=== PATIENT | female | born 1980 | race Caucasian/White ===

== ENCOUNTER → 2021-02-14 | Outpatient (CLI) | payer OTHER ==
[2021-02-14 14:13] VITALS: RESP 16; TEMP 98.1; BMI 44.9
[2021-02-14 14:23] VITALS: BP 132/82; PULSE 102
[2021-02-14 14:56] LABS: HCT 41.5 % (34.0-46.0); HGB 13.5 gm/dL (11.4-16.0); MCH 28.3 pg (25.0-35.0); MCHC 32.6 g/dL (31.0-37.0); MCV 86.9 fL (80.0-100.0); Mean Platelet Volume 7.3; Platelet Count 309 k/uL (150-450); RBC 4.78 m/uL (3.80-5.40); RDW 13.1 % (11.5-15.5); WBC 9.3 k/uL (3.8-10.6)
[2021-02-15 14:52] LABS: African American GFR (CKD) 88.8 (60.0-200.0); Albumin 4.3 g/dL (3.8-4.9); Albumin/Globulin Ratio 1.71 (1.60-3.17); Anion Gap 10.8 mmol/L (4.00-12.00); BUN/Creat Ratio 11.09 Ratio (12.00-20.00); Blood Urea Nitrogen 10.4 mg/dL (9.0-27.0); Calcium 9.4 mg/dL (8.7-10.3); Carbon Dioxide 25.9 mmol/L (21.6-31.8); Folate, Serum 13.6 ng/mL (4.40-31.00); Globulin 2.5 g/dL (1.6-3.3); Non-African American GFR(CKD) 76.6 (60.0-200.0); Potassium 4.2 mmol/L (3.5-5.5); Total Bilirubin 0.3 mg/dL (0.30-1.20); Total Protein 6.7 g/dL (6.2-8.2)
== END ==
LOC: BARWHC3 13:57
PROVIDERS: ATTEND Surgery
DX: E88.81 Metabolic syndrome and other insulin resistance (principal); E66.01 Morbid (severe) obesity due to excess calories; E55.9 Vitamin D deficiency, unspecified; Z68.41 Body mass index [BMI] 40.0-44.9, adult; Z91.040 Latex allergy status; Z88.2 Allergy status to sulfonamides; Z88.1 Allergy status to other antibiotic agents
CPT/HCPCS: 36415; 80053; 82306; 82607; 82746; 83036; 84425; 85027; 93005; 99203

== ENCOUNTER 2021-03-24 08:53 | Day surgery (SDC) | payer OTHER ==
[2021-03-22 12:06] VITALS: BMI 53.3
[~2021-03-24 08:53] MED LIST: LACTATED RINGERS 1,000 ML IV SCH; LIDOCAINE 1% (10MG/ML) FOR IV START INTRADERMA PRN
[2021-03-24 09:21] VITALS: TEMP 96.4
[2021-03-24] MEDS ORDERED: PROPOFOL 10 MG/ML 20 ML VIAL IV ONE (11:08)
[2021-03-24] MEDS ORDERED: LIDOCAINE 1% INJ 10MG/ML (20 ML MDV) ONE (11:08)
--- NOTE | 2021-03-24 11:20 | P.GSHP ---
History of Present Illness H&P Date: 03/24/21 Chief Complaint: GERD, morbid obesity 's is a 40-year-old female who is undergoing workup for sleeve gastrectomy. Patient has had lifetime problems morbid obesity. Her BMI is 54. He said some issues with GERD. She'll undergo EGD today. Past Medical History Past Medical History: No Reported History Additional Past Medical History / Comment(s): BARIATRIC EVAL History of Any Multi-Drug Resistant Organisms: None Reported Past Surgical History: Cholecystectomy, Tonsillectomy Additional Past Surgical History / Comment(s): ORIF RT LITTLE FINGER Past Anesthesia/Blood Transfusion Reactions: No Reported Reaction Smoking Status: Never smoker - Past Family History Mother Family Medical History: No Reported History Medications and Allergies Home Medications Medication Instructions Recorded Confirmed Type Citalopram Hydrobromide [CeleXA] 40 mg PO DAILY 02/14/21 03/24/21 History valACYclovir [Valtrex] 500 mg PO DIRECTED 02/14/21 03/24/21 History Allergies Allergy/AdvReac Type Severity Reaction Status Date / Time latex Allergy Rash/Hives Verified 02/14/21 14:28 sulfamethoxazole Allergy Rash/Hives Verified 03/22/21 11:59 [From Bactrim] trimethoprim [From Bactrim] Allergy Unknown Verified 05/29/16 09:38 Surgical - Exam Vital Signs Temp Pulse Resp BP Pulse Ox 96.4 F L 84 16 143/67 98 03/24/21 09:17 03/24/21 09:17 03/24/21 09:17 03/24/21 09:17 03/24/21 09:17 - General well developed, well nourished, no distress - Eyes PERRL - ENT normal pinna - Neck no masses - Respiratory normal expansion - Cardiovascular Rhythm: regular - Abdomen Abdomen: soft, non tender Assessment and Plan Assessment: GERD, morbid obesity. We'll perform EGD.
--- NOTE | 2021-03-24 11:26 | P.OP ---
Date of Procedure: 03/24/21 Preoperative Diagnosis: GERD Morbid obesity Postoperative Diagnosis: Antral gastritis Procedure(s) Performed: EGD Anesthesia: MAC Surgeon: Surjit Melo Pathology: other (Antrum) Condition: stable Disposition: PACU Description of Procedure: The patient's placed on the endoscopy table in the lateral position. She received IV sedation. The gastro-/oropharynx passed in the esophagus and the stomach. Scope was then placed through the pylorus. The first and second portion of the duodenum appeared normal. Scope was then brought back the antrum this. Mildly inflamed. A biopsies performed. The scope was retroflexed the remainder of the stomach appeared normal. GE junction was at 40 cm the distal esophagus.. Proximal esophagus appeared normal. Scope withdrawn for patient.
[2021-03-24 12:04] VITALS: BP 118/79; PULSE 81; RESP 18
== END 2021-03-24 12:19 | disposition home or self-care (01) ==
LOC: ORWHC2ENDO 08:53
PROVIDERS: ATTEND Surgery
DX: K29.50 Unspecified chronic gastritis without bleeding (principal); K21.9 Gastro-esophageal reflux disease without esophagitis; F32.A Depression, unspecified; E66.01 Morbid (severe) obesity due to excess calories; Z68.43 Body mass index [BMI] 50.0-59.9, adult; Z90.49 Acquired absence of other specified parts of digestive tract; Z97.2 Presence of dental prosthetic device (complete) (partial); Z98.890 Other specified postprocedural states; Z79.899 Other long term (current) drug therapy; Z91.040 Latex allergy status; Z88.2 Allergy status to sulfonamides
CPT/HCPCS: 81025; 88305; 43239; J2001; J2704

== ENCOUNTER → 2021-04-25 | Outpatient (CLI) | payer OTHER ==
[2021-04-25 14:23] VITALS: BP 144/92; PULSE 92; RESP 18; TEMP 98.4; BMI 45.1
--- NOTE | 2021-04-25 16:41 | P.HPBAR ---
Bariatric H&P - History & Physicial H&P Date: 04/25/21 History & Physicial: Visit/CC: follow up Patient initial contact: Initial weight: 126.099 kg Initial weight in pounds: 278.00 Height: 5 ft 6 in Initial BMI: 44.9 Last weight: Current weight: 127.006 kg Current weight in pounds: 280.00 Current BMI: 45.1 [place] body weight (based on NIH guidelines): 58.967 kg Excess body weight loss: The patient is a 40 year-old F who presents for Bariatric Assessment. Patient presents today for bariatric follow-up. She has gained 2 pounds her last visit. She has some minimal GERD. Past Medical History Past Medical History: No Reported History Additional Past Medical History / Comment(s): BARIATRIC EVAL History of Any Multi-Drug Resistant Organisms: None Reported Past Surgical History: Cholecystectomy, Tonsillectomy Additional Past Surgical History / Comment(s): ORIF RT LITTLE FINGER Past Anesthesia/Blood Transfusion Reactions: No Reported Reaction Past Psychological History: Anxiety Smoking Status: Never smoker Past Alcohol Use History: Rare Past Drug Use History: None Reported - Past Family History Mother Family Medical History: No Reported History Surgical - Exam Vital Signs Temp Pulse Resp BP 98.4 F 92 18 144/92 04/25/21 14:21 04/25/21 14:21 04/25/21 14:21 04/25/21 14:21 - General well developed, well nourished, no distress - Eyes PERRL - ENT normal pinna - Neck no masses - Respiratory normal expansion - Cardiovascular Rhythm: regular - Abdomen Abdomen: soft, non tender Bariatric Assessment & Plan Plan: Morbid obesity. Patient appears minimal. Observed. She'll work on her dietary choices Bariatric Checklist Checklist: Plan: Checklist: EGD: 1. Hiatal hernia: 2. H. Pylori: HgbA1c: Vitamin D: Smoking: Never smoker Primary care physician referral: Psychiatry clearance: Cardiology clearance: Sleep study: Diet journal: VTE risk score: VTE risk level: Rehab needs at discharge:
== END ==
LOC: BARWHC3 13:44
PROVIDERS: ATTEND Surgery
DX: E66.01 Morbid (severe) obesity due to excess calories (principal); F41.9 Anxiety disorder, unspecified; Z68.42 Body mass index [BMI] 45.0-49.9, adult; Z91.040 Latex allergy status; Z88.2 Allergy status to sulfonamides
CPT/HCPCS: 99211

== ENCOUNTER → 2021-07-11 | Outpatient (CLI) | payer OTHER ==
[2021-07-11 13:22] VITALS: BP 145/96; PULSE 101; RESP 16; TEMP 97.7; BMI 45.0
--- NOTE | 2021-07-11 15:54 | P.HPBAR ---
Bariatric H&P - History & Physicial H&P Date: 07/11/21 History & Physicial: Visit/CC: pre-surg Patient initial contact: Initial weight: 126.099 kg Initial weight in pounds: 278.00 Height: 5 ft 6 in Initial BMI: 44.9 Last weight: Current weight: 126.552 kg Current weight in pounds: 279.00 Current BMI: 45.0 [place] body weight (based on NIH guidelines): 58.967 kg Excess body weight loss: The patient is a 40 year-old F who presents for Bariatric Assessment. Patient presents today for presurgical consultation. Patient morbid obese. Her BMI is 45. Past Medical History Past Medical History: No Reported History Additional Past Medical History / Comment(s): BARIATRIC EVAL History of Any Multi-Drug Resistant Organisms: None Reported Past Surgical History: Cholecystectomy, Tonsillectomy Additional Past Surgical History / Comment(s): ORIF RT LITTLE FINGER Past Anesthesia/Blood Transfusion Reactions: No Reported Reaction Past Psychological History: Anxiety Smoking Status: Never smoker Past Alcohol Use History: Rare Past Drug Use History: None Reported - Past Family History Mother Family Medical History: No Reported History Surgical - Exam Vital Signs Temp Pulse Resp BP 97.7 F 101 H 16 145/96 07/11/21 13:20 07/11/21 13:20 07/11/21 13:20 07/11/21 13:20 - General well developed, well nourished, no distress - Eyes PERRL - ENT normal pinna - Neck no masses - Respiratory normal expansion - Cardiovascular Rhythm: regular - Abdomen Abdomen: soft, non tender Bariatric Assessment & Plan Plan: Morbid obesity. Patient will undergo sleeve gastrectomy once her insurance authorization requirements have been met. Bariatric Checklist Checklist: Plan: Checklist: EGD: 1. Hiatal hernia: 2. H. Pylori: HgbA1c: Vitamin D: Smoking: Never smoker Primary care physician referral: Psychiatry clearance: Cardiology clearance: Sleep study: Diet journal: VTE risk score: VTE risk level: Rehab needs at discharge:
== END ==
LOC: BARWHC3 13:01
PROVIDERS: ATTEND Surgery
DX: E66.01 Morbid (severe) obesity due to excess calories (principal); Z68.41 Body mass index [BMI] 40.0-44.9, adult; F41.9 Anxiety disorder, unspecified; Z91.040 Latex allergy status; Z88.2 Allergy status to sulfonamides; Z71.51 Drug abuse counseling and surveillance of drug abuser; Z71.3 Dietary counseling and surveillance
CPT/HCPCS: 80323; 99211

== ENCOUNTER → 2021-07-30 | Outpatient (CLI) | payer OTHER ==
[2021-07-30 15:55] LABS: Basophils # (A) 0.02 X 10*3/uL (0.00-0.10); Basophils % (A) 0.2 %; Eosinophils # (A) 0 X 10*3/uL (0.04-0.35); Eosinophils % (A) 0 %; HCT 49.7 % (37.2-46.3); HGB 15.8 g/dL (12.0-15.0); Immature Grans, Automated 0.2 %; Lymphocytes # (A) 1.76 X 10*3/uL (0.90-5.00); Lymphocytes % (A) 20.7 %; MCH 27.1 pg (27.0-32.0); MCHC 31.8 g/dL (32.0-37.0); MCV 85.4 fL (80.0-97.0); Monocytes # (A) 0.36 X 10*3/uL (0.20-1.00); Monocytes % (A) 4.2 %; NRBC Per 100 WBC 0 /100 WBCS (0.0-0.0); Neutrophils # (A) 6.35 X 10*3/uL (1.80-7.70); Neutrophils % (A) 74.7 %; Platelet Count 377 X 10*3/uL (140-440); RBC 5.82 X 10*6/uL (4.10-5.20); WBC 8.51 X 10*3/uL (4.50-10.00)
[2021-07-30 16:07] LABS: African American GFR (CKD) 91.5 (60.0-200.0); Albumin 4.8 g/dL (3.8-4.9); Albumin/Globulin Ratio 1.51 (1.60-3.17); Anion Gap 12.2 mmol/L (10.00-18.00); BUN/Creat Ratio 16.17 Ratio (12.00-20.00); Blood Urea Nitrogen 14.8 mg/dL (9.0-27.0); Calcium 9.8 mg/dL (8.7-10.3); Carbon Dioxide 24.1 mmol/L (20.0-27.5); Globulin 3.2 g/dL (1.6-3.3); Potassium 4.2 mmol/L (3.5-5.5); Total Bilirubin 0.8 mg/dL (0.30-1.20); Total Protein 7.9 g/dL (6.2-8.2)
== END | disposition home or self-care (01) ==
LOC: LABPAT 11:13
PROVIDERS: ATTEND Surgery
DX: Z01.812 Encounter for preprocedural laboratory examination (principal)
CPT/HCPCS: 80053; 85025

== ENCOUNTER 2021-08-15 07:30 | Inpatient (IN) | payer OTHER ==
[~2021-08-15 07:30] MED LIST changes: +DEXAMETHASONE SOD PHOSPHATE 4 MG/ML 1 ML VIAL IV ONE; +ENOXAPARIN 40 MG/0.4 ML SYRINGE SQ PRN; -LACTATED RINGERS 1,000 ML IV SCH; -LIDOCAINE 1% (10MG/ML) FOR IV START INTRADERMA PRN; +MIDAZOLAM 2 MG/2 ML VIAL IV PRN; +ONDANSETRON 4 MG/2 ML VIAL IVP ONE; +SCOPOLAMINE 1 MG/72 HR PATCH TRANSDERM ONE; +ceFAZolin 3 GM in SODIUM CHLORIDE 0.9% 100 ML IVPB PRN
[2021-08-15] MEDS: LACTATED RINGERS 1,000 ML IV SCH (08:19)
--- NOTE | 2021-08-15 09:23 | P.GSHP ---
History of Present Illness H&P Date: 08/15/21 Chief Complaint: Obesity, BMI 43 This is a 40-year-old female who presents today for laparoscopic sleeve gastrectomy. Patient has had lifetime problems obesity. Patient presents today for laparoscopic sleeve gastric. Patient reversed surgery including issues with gastric sleeve disruption scarring and bleeding. Past Medical History Past Medical History: GERD/Reflux, Mitral Valve Prolapse (MVP), Skin Disorder Additional Past Medical History / Comment(s): "MVP not shown on EKG, difficult to hear per ". Eczema. History of Any Multi-Drug Resistant Organisms: None Reported Past Surgical History: Cholecystectomy, Orthopedic Surgery, Tonsillectomy Additional Past Surgical History / Comment(s): ORIF RT LITTLE FINGER. Past Anesthesia/Blood Transfusion Reactions: No Reported Reaction, Motion Sickness Past Psychological History: Anxiety Smoking Status: Never smoker Past Alcohol Use History: Rare Past Drug Use History: None Reported - Past Family History Mother Family Medical History: No Reported History Medications and Allergies Home Medications Medication Instructions Recorded Confirmed Type Citalopram Hydrobromide [CeleXA] 40 mg PO QAM 02/14/21 08/15/21 History valACYclovir [Valtrex] 500 mg PO DIRECTED PRN 02/14/21 08/15/21 History Allergies Allergy/AdvReac Type Severity Reaction Status Date / Time latex Allergy Rash/Hives Verified 08/15/21 08:18 sulfamethoxazole Allergy Rash/Hives Verified 08/15/21 08:18 [From Bactrim] trimethoprim [From Bactrim] Allergy Unknown Verified 08/15/21 08:18 Surgical - Exam Vital Signs Temp Pulse Resp BP Pulse Ox 97.7 F 96 18 140/89 99 08/15/21 08:26 08/15/21 08:26 08/15/21 08:26 08/15/21 08:26 08/15/21 08:26 - General well developed, well nourished, no distress - Eyes PERRL - ENT normal pinna - Neck no masses - Respiratory normal expansion - Cardiovascular Rhythm: regular - Abdomen Abdomen: soft, non tender Assessment and Plan Assessment: Morbid obesity. We'll perform laparoscopic sleeve gastrectomy
[2021-08-15] MEDS ORDERED: fentaNYL (PF) 50 MCG/ML 2 ML AMP ONE (09:33)
[2021-08-15] MEDS ORDERED: HYDROmorphone (PF) 1 MG/ML ONE (09:33)
[2021-08-15] MEDS ORDERED: KETAMINE 10 MG/ML 20 ML VIAL ONE (09:33)
[2021-08-15] MEDS ORDERED: GLYCOPYRROLATE 0.2 MG/ML 2 ML VIAL ONE (09:33)
[2021-08-15] MEDS ORDERED: LIDOCAINE 1% INJ 10MG/ML (20 ML MDV) ONE (09:33)
[2021-08-15] MEDS ORDERED: KETOROLAC 15 MG/ML 1 ML VIAL ONE (09:33)
[2021-08-15] MEDS ORDERED: MIDAZOLAM 2 MG/2 ML VIAL ONE (09:33)
[2021-08-15] MEDS ORDERED: PROPOFOL 10 MG/ML 20 ML VIAL IV ONE (09:33)
[2021-08-15] MEDS ORDERED: ROCURONIUM 10 MG/ML (5 ML VIAL) IV ONE (09:33)
[2021-08-15] MEDS ORDERED: NEOSTIGMINE 1 MG/ML 10 ML VIAL ONE (09:33)
[2021-08-15] MEDS ORDERED: SUCCINYLCHOLINE CHLORIDE VIAL 200 MG/10 ML VIAL IV ONE (09:33)
[2021-08-15] MEDS ORDERED: BUPIVACAIN-EPI 0.25%-1:200,000 30 ML VIAL SQ ONE (09:55)
[2021-08-15] MEDS ORDERED: ONDANSETRON 4 MG/2 ML VIAL IVP PRN (10:41)
[2021-08-15] MEDS ORDERED: HYOSCYAMINE ORAL DROPS 1.875 MG/15 ML BOTTLE PO PRN (10:41)
[2021-08-15] MEDS ORDERED: diphenhydrAMINE 50 MG/ML 1 ML VIAL IVP PRN (10:41)
[2021-08-15] MEDS ORDERED: HYDROcodone/APAP 15 ML SOLUTION PO PRN (10:41)
[2021-08-15] MEDS ORDERED: NALOXONE 0.4 MG/ML 1 ML VIAL IV PRN (10:41)
--- NOTE | 2021-08-15 10:41 | P.OP ---
Date of Procedure: 08/15/21 Preoperative Diagnosis: Morbid obesity, BMI 43 Postoperative Diagnosis: Morbid obesity Procedure(s) Performed: Laparoscopic sleeve gastrectomy Anesthesia: EMILIA Surgeon: Surjit Melo Estimated Blood Loss (ml): 10 Pathology: other (Stomach) Condition: stable Disposition: PACU Operative Findings: The patient was placed on the operating room table in the supine position. She received general anesthesia and then was placed in dorsal lithotomy position. Her abdomen was prepped and draped in sterile fashion. The skin incision sites were anesthetized 1% local Xylocaine. And then the skin was incised with an 11 blade in the left lateral position. Using a blade less trocar under direct visualization the peritoneal cavity was entered. The abdomen was insufflated and then a 5 mm laparoscope was placed into the peritoneal cavity. A 5 mm trocar was placed in the right epigastric, and right lateral position. A 15 mm trocar was placed in the supra-umbilical position and another 5 mm trocar was placed in the left lateral position. The left lateral lobe of the liver was retracted. The stomach was visualized. The greater curvature of the stomach was then dissected using the Harmonic scissors. The dissection occurred approximately 5 cm from the pylorus to the level of the left sola. There was no hiatal hernia seen. At this point a 40-[place] bougie dilator was placed the oropharynx and passed into the esophagus and into the stomach by the PRODUCTION PAINTER. The sleeve gastrectomy was performed by using the powered echelon stapler with a seam guard buttress material. Sequential firings of the stapler were performed. The gastric remnant was then brought out through the 15 mm trocar site. The dilator was withdrawn. And a orogastric tube was replaced into the stomach. The stomach was insufflated with 200 mL of methylene blue normal saline. There was no evidence of extravasation. The abdomen was irrigated there is no bleeding seen. The Nazario-Mandy device was used to close the 15 mm trocar with 0 Vicryl. Skin was closed with interrupted 3-0 Monocryl sutures once the trochars withdrawn. Dermabond dressing was applied. Patient was sent to recovery in stable condition.
[2021-08-15] MEDS: HYDROmorphone 0.5 MG/0.5 ML SYRINGE IVP PRN ×2 (11:21→11:35)
[2021-08-15] MEDS: SIMETHICONE 40 MG/0.6 ML DROPS 2,000 MG/30 ML BOTTLE PO PRN ×2 (14:26→20:11)
[2021-08-15] MEDS ORDERED: hydrALAZINE HCL 20 MG/ML 1 ML VIAL IVP PRN (15:20)
[2021-08-15] MEDS: HYDROmorphone 1 MG/ML 1 ML SYRINGE IVP PRN ×2 (15:47→21:20)
--- NOTE | 2021-08-15 17:13 | CONS ---
CONSULTATION DATE OF SERVICE: 08/15/2021 REASON FOR CONSULTATION: Advice regarding GERD and other medical issues, requested by Dr. Melo. HISTORY OF PRESENT ILLNESS: This 40-year-old woman with past medical history of GERD and mitral prolapse underwent laparoscopic sleeve gastrectomy by Dr. Melo. There is no history of any fever, rigors or chills. No history of headache, loss of consciousness, seizures. PAST MEDICAL HISTORY: Past medical history includes GERD, mitral valve prolapse. HOME MEDICATIONS: Reviewed. They include Valtrex. ALLERGIES: ALLERGIES include LATEX. FAMILY HISTORY: No history of heart disease or strokes in the family. SOCIAL HISTORY: No history of smoking. REVIEW OF SYSTEMS: Fourteen-point review of systems negative except as mentioned earlier. PHYSICAL EXAMINATION: Pulse is 93, blood pressure 167/91, respiration 16. HEENT: Conjunctivae normal. NECK: No jugular venous distention. CARDIOVASCULAR: S1, S2 muffled. RESPIRATION: Breath sounds diminished at the bases. A few scattered rhonchi. ABDOMEN: Soft, obese. Status post surgery. LEGS: No edema. No swelling. NERVOUS SYSTEM: No focal deficit. SKIN: No ulcer, rash, bleeding. JOINTS: No active deforming arthropathy. LABS: Not available. ASSESSMENT: 1. Status post laparoscopic sleeve gastrectomy. 2. Hypertension. 3. Gastroesophageal reflux disease. 4. Anxiety. RECOMMENDATIONS AND DISCUSSION: In this 40-year-old woman who presented after surgery, at this time I recommend to continue current medications, continue symptomatic treatment. Blood pressure is significantly elevated. P.r.n. medications may be used. Otherwise, DVT prophylaxis, incentive spirometry. Will follow the patient closely with you. Thank you, Dr. Melo, for letting us participate in the care of this patient. MMODL / IJN: [id number] /
[2021-08-15] MEDS: KETOROLAC 15 MG/ML 1 ML VIAL IVP SCH (17:26)
[2021-08-15] MEDS: 0.9% NACL WITH KCL 20 MEQ/L 1,000 ML IV SCH (17:28)
[2021-08-15] MEDS: ALBUTEROL NEBULIZED 2.5 MG/3 ML INHALATION SCH ×2 (20:22→21:46)
[2021-08-16] MEDS: KETOROLAC 15 MG/ML 1 ML VIAL IVP SCH ×3 (01:23→11:45)
[2021-08-16] MEDS: SIMETHICONE 40 MG/0.6 ML DROPS 2,000 MG/30 ML BOTTLE PO PRN (05:08)
[2021-08-16] MEDS: LACTATED RINGERS 1,000 ML IV SCH (07:09)
[2021-08-16 07:16] VITALS: RESP 19
[2021-08-16] MEDS ORDERED: 1: THIAMINE 100 MG, FOLIC ACID 1 MG in 0.9% NACL WITH KCL 20 MEQ/L 1,000 ML 2: 0.9% NAC IVPB SCH (08:00)
[2021-08-16] MEDS ORDERED: ENOXAPARIN 40 MG/0.4 ML SYRINGE SQ SCH (09:00)
[2021-08-16] MEDS ORDERED: PANTOPRAZOLE 40 MG/10 ML VIAL IV SCH (09:00)
[2021-08-16] MEDS ORDERED: CITALOPRAM HYDROBROMIDE 20 MG TAB PO SCH (09:00)
[2021-08-16 09:09] LABS: Basophils # (A) 0.01 X 10*3/uL (0.00-0.10); Basophils % (A) 0.1 %; Eosinophils # (A) 0 X 10*3/uL (0.04-0.35); Eosinophils % (A) 0 %; HCT 42.4 % (37.2-46.3); HGB 13.2 g/dL (12.0-15.0); Immature Grans, Automated 0.2 %; Lymphocytes # (A) 1.34 X 10*3/uL (0.90-5.00); Lymphocytes % (A) 10.9 %; MCH 27.4 pg (27.0-32.0); MCHC 31.1 g/dL (32.0-37.0); MCV 88.1 fL (80.0-97.0); Mean Platelet Volume 11.3 fL (9.5-12.2); Monocytes # (A) 0.65 X 10*3/uL (0.20-1.00); Monocytes % (A) 5.3 %; NRBC Per 100 WBC 0 /100 WBCS (0.0-0.0); Neutrophils # (A) 10.25 X 10*3/uL (1.80-7.70); Neutrophils % (A) 83.5 %; Platelet Count 326 X 10*3/uL (140-440); RBC 4.81 X 10*6/uL (4.10-5.20); RDW 14.6 % (11.5-14.5); WBC 12.28 X 10*3/uL (4.50-10.00)
[2021-08-16 09:30] LABS: African American GFR (CKD) 107.6 (60.0-200.0); Anion Gap 14.1 mmol/L (10.00-18.00); Calcium 8.8 mg/dL (8.7-10.3); Carbon Dioxide 21.9 mmol/L (20.0-27.5); Non-African American GFR(CKD) 92.9 (60.0-200.0); Phosphorus 2.9 mg/dL (2.4-5.1); Potassium 4.8 mmol/L (3.5-5.5)
[2021-08-16] MEDS: ALBUTEROL NEBULIZED 2.5 MG/3 ML INHALATION SCH ×2 (09:35→12:48)
[2021-08-16] MEDS: 0.9% NACL WITH KCL 20 MEQ/L 1,000 ML IV SCH (09:35)
--- NOTE | 2021-08-16 10:43 | FL ---
SINGLE CONTRAST UPPER GI EXAMINATION: CLINICAL HISTORY: 40-year-old female postop bariatric surgery, sleeve gastrectomy on 08/15/2021. TECHNIQUE: Single contrast exam performed with 50 ml Isovue-370 contrast. Total fluoroscopy time: 1 minute 34 seconds. Total images: 18. FINDINGS: The patient swallowed oral contrast without difficulty or delay. Mild tertiary peristaltic waves are demonstrated. There is prompt passage of contrast in across the GE junction into the proximal stomach . While contrast does pass across the sleeve gastrectomy, couple episodes of gastroesophageal reflux are also encountered. There is no extravasation of contrast to suggest leak. Trace postsurgical free air below each hemidiaphragm. IMPRESSION: No evidence for leak status post sleeve gastrectomy. Relative mild hesitancy in passage of contrast a cross the sleeve likely due to postoperative edema. Trace postsurgical free air below the diaphragm.
[2021-08-16 12:28] VITALS: BMI 43.3
[2021-08-16 13:51] VITALS: BP 142/80; PULSE 80; TEMP 97.9
--- NOTE | 2021-08-16 15:11 | P.DS ---
Providers Date of admission: 08/15/21 08:11 Expected date of discharge: 08/16/21 Attending physician: Surjit Melo Consults: 08/15/21 10:41 Consult Physician Routine Consulting Provider: Nato Singer Consult Reason/Comments: Medical management Do you want consulting provider notified?: Yes Primary care physician: Nnacy Moore Hospital Course: Discharge diagnosis 1. Morbid obesity status post laparoscopic sleeve gastrectomy Hospital course This is a 40-year-old female with history of morbid obesity. She is status post laparoscopic sleeve gastrectomy. She tolerated surgery well. Upper GI shows no evidence of leak. Relative mild hesitancy and passage of contrast across the sleeve likely due to postoperative edema. Trace postsurgical free air below the diaphragm. Patient is tolerating bariatric clear liquid diet. Patient reports her pain is controlled. She has been up and ambulating. She is having flatus. She's afebrile. She is stable for discharge. Please refer to chart for any further details. Physician Early Childhood Lead Teacher note has been reviewed by physician. Signing provider agrees with the documented findings, assessment, and plan of care. Patient Condition at Discharge: Stable Plan - Discharge Summary Discharge Rx Participant: Yes New Discharge Prescriptions: New bisacodyL [Dulcolax] 5 mg PO DAILY PRN #10 tab PRN Reason: Constipation Ondansetron Odt [Zofran Odt] 4 mg PO Q8HR PRN #9 tab PRN Reason: Nausea Simethicone 40 mg/0.6 ml Drops [Mylicon Drops] 40 mg PO PCHS PRN #30 ml PRN Reason: Gas Omeprazole [PriLOSEC] 40 mg PO DAILY #30 cap HYDROcodone/APAP 5-325MG [[place] 5-325] 1 tab PO Q6HR PRN 2 Days #5 tab PRN Reason: Pain Continue Citalopram Hydrobromide [CeleXA] 40 mg PO QAM valACYclovir [Valtrex] 500 mg PO DIRECTED PRN PRN Reason: Rash Discharge Medication List Citalopram Hydrobromide [CeleXA] 40 mg PO QAM 02/14/21 [History] valACYclovir [Valtrex] 500 mg PO DIRECTED PRN 02/14/21 [History] HYDROcodone/APAP 5-325MG [[place] 5-325] 1 tab PO Q6HR PRN 2 Days #5 tab 08/16/21 [Rx] Omeprazole [PriLOSEC] 40 mg PO DAILY #30 cap 08/16/21 [Rx] Ondansetron Odt [Zofran Odt] 4 mg PO Q8HR PRN #9 tab 08/16/21 [Rx] Simethicone 40 mg/0.6 ml Drops [Mylicon Drops] 40 mg PO PCHS PRN #30 ml 08/16/21 [Rx] bisacodyL [Dulcolax] 5 mg PO DAILY PRN #10 tab 08/16/21 [Rx] Follow up [facility]ment(s[facility]Ref[place] [facility] [place] [place] [facility] [place] 1 Week Activity/Diet/Wound Care/Special Instructions: No driving while taking [place] No lifting over 10 pounds You may shower. No soaking or tub baths for 2 weeks Very light activity until you are reevaluated at your follow up appointment with your surgeon No straws or carbonated beverages Discharge Disposition: HOME SELF-CARE
--- NOTE | 2021-08-16 16:24 | PN ---
PROGRESS NOTE DATE OF SERVICE: 08/16/2021 This 40-year-old woman who was admitted after laparoscopic sleeve gastrectomy is improving significantly. No chest pain. No palpitations. No fever. PHYSICAL EXAMINATION: Pulse 80, blood pressure 142/80, respiration 19. CHEST: Clear to auscultation. CARDIOVASCULAR: S1, S2 muffled. ABDOMEN: Soft. Status post surgery. NERVOUS SYSTEM: No focal deficit. LABS: Reviewed. ASSESSMENT: 1. Status post sleeve gastrectomy laparoscopically. 2. Hypertension. 3. Gastroesophageal reflux disease. 4. Anxiety. RECOMMENDATIONS AND DISCUSSION: I recommend to continue current medications, continue with the monitoring, symptomatic treatment. Continue incentive spirometry. DVT prophylaxis. Home medications upon discharge. Follow with primary physician in one week. Continue incentive spirometry. Thank you, Dr. Melo. MMJUANIL / ANANTHN: [id number] /
[2021-08-17] MEDS ORDERED: bisacodyL 5 MG TABLET.DR PO PRN (08:00)
== END 2021-08-16 16:29 | disposition home or self-care (01) | DRG 621 ==
LOC: 2ORMAIN 08:11 → 4SSUR 16:50
PROVIDERS: ADMIT Surgery; ATTEND Surgery
PROC: 0DB60Z3 Excision of Stomach, Open Approach, Vertical (ICD-10-PCS; principal; 2021-08-15 08:55)
DX: E66.01 Morbid (severe) obesity due to excess calories (principal); F41.9 Anxiety disorder, unspecified; I10 Essential (primary) hypertension; I34.1 Nonrheumatic mitral (valve) prolapse; K21.9 Gastro-esophageal reflux disease without esophagitis; Z68.41 Body mass index [BMI] 40.0-44.9, adult; Z90.89 Acquired absence of other organs; Z90.49 Acquired absence of other specified parts of digestive tract; Z88.2 Allergy status to sulfonamides; Z91.040 Latex allergy status
CPT/HCPCS: 74240; 80051; 81025; 82310; 82565; 83735; 84100; 84520; 85025; 88307

== ENCOUNTER → 2021-08-19 | Outpatient (CLI) | payer OTHER ==
[2021-08-19 11:08] VITALS: BP 133/85; PULSE 82; TEMP 98.1; BMI 42.7
== END ==
LOC: BARWHC3 10:22
PROVIDERS: ATTEND Surgery
DX: Z09 Encounter for follow-up examination after completed treatment for conditions other than malignant neoplasm (principal); K21.9 Gastro-esophageal reflux disease without esophagitis; Z98.84 Bariatric surgery status; Z91.040 Latex allergy status; Z88.2 Allergy status to sulfonamides
CPT/HCPCS: 99211

== ENCOUNTER → 2021-08-22 | Outpatient (CLI) | payer OTHER ==
[2021-08-22 15:56] VITALS: BP 131/85; PULSE 77; RESP 16; TEMP 97.5; BMI 42.3
== END ==
LOC: BARWHC3 14:42
PROVIDERS: ATTEND Surgery
DX: E66.01 Morbid (severe) obesity due to excess calories (principal); Z71.3 Dietary counseling and surveillance; F41.9 Anxiety disorder, unspecified; Z68.41 Body mass index [BMI] 40.0-44.9, adult; Z98.84 Bariatric surgery status; Z91.040 Latex allergy status; Z88.2 Allergy status to sulfonamides
CPT/HCPCS: 99211

== ENCOUNTER → 2021-08-22 | Outpatient (CLI) | payer OTHER ==
[2021-08-22 14:44] VITALS: BMI 42.3
== END ==
LOC: MERGE 14:05 → BARWHC3 14:05
PROVIDERS: ATTEND Surgery
DX: E66.01 Morbid (severe) obesity due to excess calories (principal); Z71.3 Dietary counseling and surveillance; Z68.41 Body mass index [BMI] 40.0-44.9, adult; Z91.040 Latex allergy status; Z88.2 Allergy status to sulfonamides
CPT/HCPCS: 97803

== ENCOUNTER → 2021-09-19 | Outpatient (CLI) | payer OTHER ==
[2021-09-19 13:12] VITALS: BP 105/70; PULSE 96; TEMP 97.9; BMI 40.1
--- NOTE | 2021-09-19 14:49 | P.HPBAR ---
Bariatric H&P - History & Physicial H&P Date: 09/19/21 History & Physicial: Visit/CC: 1 month sleeve f/u Patient initial contact: Initial weight: 126.099 kg Initial weight in pounds: 278.00 Height: 5 ft 6 in Initial BMI: 44.9 Last weight: Current weight: 112.945 kg Current weight in pounds: 249.00 Current BMI: 40.1 [place] body weight (based on NIH guidelines): 58.967 kg Excess body weight loss: 19.5% The patient is a 41 year-old F who presents for Bariatric Assessment. Patient presents today for sleeve gastrectomy follow-up. She has had some mild GERD. She's had excellent weight loss. Past Medical History Past Medical History: GERD/Reflux, Mitral Valve Prolapse (MVP), Skin Disorder Additional Past Medical History / Comment(s): "MVP not shown on EKG, difficult to hear per ". Eczema. History of Any Multi-Drug Resistant Organisms: None Reported Past Surgical History: Bariatric Surgery, Cholecystectomy, Orthopedic Surgery, Tonsillectomy Additional Past Surgical History / Comment(s): ORIF RT LITTLE FINGER. sleeve 08/15/2021. sleeve gastrectomy 08-15-21 Past Anesthesia/Blood Transfusion Reactions: Motion Sickness, No Reported Reaction Past Psychological History: Anxiety Smoking Status: Never smoker Past Alcohol Use History: Rare Past Drug Use History: None Reported - Past Family History Mother Family Medical History: No Reported History Surgical - Exam Vital Signs Temp Pulse BP 97.9 F 96 105/70 09/19/21 13:11 09/19/21 13:11 09/19/21 13:11 - General well developed, well nourished, no distress - Eyes PERRL - ENT normal pinna - Neck no masses - Respiratory normal expansion - Cardiovascular Rhythm: regular - Abdomen Abdomen: soft, non tender Bariatric Assessment & Plan Plan: Status post sleeve gastrectomy. Patient's GERD is minimal will be observed. She'll follow-up in 4 weeks. Bariatric Checklist Checklist: Plan: Checklist: EGD: 1. Hiatal hernia: 2. H. Pylori: HgbA1c: Vitamin D: Smoking: Never smoker Primary care physician referral: Psychiatry clearance: Cardiology clearance: Sleep study: Diet journal: VTE risk score: VTE risk level: Rehab needs at discharge:
[2021-09-19 18:27] LABS: HCT 42.4 % (37.2-46.3); HGB 13.6 g/dL (12.0-15.0); MCH 28.1 pg (27.0-32.0); MCHC 32.1 g/dL (32.0-37.0); MCV 87.6 fL (80.0-97.0); Mean Platelet Volume 11.2 fL (9.5-12.2); NRBC Per 100 WBC 0 /100 WBCS (0.0-0.0); Platelet Count 248 X 10*3/uL (140-440); RBC 4.84 X 10*6/uL (4.10-5.20); RDW 14.7 % (11.5-14.5)
[2021-09-19 18:57] LABS: % Iron Saturation 14.38 (12.00-45.00); African American GFR (CKD) 106.9 (60.0-200.0); Albumin 4.1 g/dL (3.8-4.9); Albumin/Globulin Ratio 1.64 (1.60-3.17); Anion Gap 8.9 mmol/L (10.00-18.00); BUN/Creat Ratio 22.38 Ratio (12.00-20.00); Blood Urea Nitrogen 17.9 mg/dL (9.0-27.0); Calcium 9.1 mg/dL (8.7-10.3); Carbon Dioxide 25.1 mmol/L (20.0-27.5); Ferritin 98.9 ng/mL (10.0-291.0); Globulin 2.5 g/dL (1.6-3.3); Magnesium 2.2 mg/dL (1.5-2.4); Non-African American GFR(CKD) 92.2 (60.0-200.0); Potassium 4.1 mmol/L (3.5-5.5); Total Bilirubin 0.5 mg/dL (0.30-1.20); Total Protein 6.6 g/dL (6.2-8.2)
[2021-09-20 11:44] LABS: Zinc, Serum 43 ug/dL (60-130)
[2021-09-21 09:49] LABS: Vitamin A 38 ug/dL (38-106)
== END ==
LOC: BARWHC3 12:42
PROVIDERS: ATTEND Surgery
DX: Z09 Encounter for follow-up examination after completed treatment for conditions other than malignant neoplasm (principal); K21.9 Gastro-esophageal reflux disease without esophagitis; Z98.84 Bariatric surgery status; F41.9 Anxiety disorder, unspecified; Z91.040 Latex allergy status; Z88.2 Allergy status to sulfonamides
CPT/HCPCS: 80053; 82306; 82607; 82728; 82746; 83540; 83550; 83735; 84255; 84425; 84443; 84590; 84630; 85027; 99211

== ENCOUNTER → 2021-10-17 | Outpatient (CLI) | payer OTHER ==
[2021-10-17 13:03] VITALS: BP 120/78; PULSE 83; TEMP 98; BMI 38.5
--- NOTE | 2021-10-17 13:30 | P.HPBAR ---
Bariatric H&P - History & Physicial H&P Date: 10/17/21 History & Physicial: Visit/CC: sleeve 2 month f/u Patient initial contact: Initial weight: 126.099 kg Initial weight in pounds: 278.00 Height: 5 ft 6 in Initial BMI: 44.9 Last weight: Current weight: 108.409 kg Current weight in pounds: 239.00 Current BMI: 38.5 [place] body weight (based on NIH guidelines): 58.967 kg Excess body weight loss: 26.3% The patient is a 41 year-old F who presents for Bariatric Assessment. Patient presents today for bariatric follow-up. She is in quite well. Her current weight is 203 9 pounds her weight last month was 249 pounds she's had some minimal GERD. She is using [id number] products for GERD Past Medical History Past Medical History: GERD/Reflux, Mitral Valve Prolapse (MVP), Skin Disorder Additional Past Medical History / Comment(s): "MVP not shown on EKG, difficult to hear per ". Eczema. History of Any Multi-Drug Resistant Organisms: None Reported Past Surgical History: Bariatric Surgery, Cholecystectomy, Orthopedic Surgery, Tonsillectomy Additional Past Surgical History / Comment(s): ORIF RT LITTLE FINGER. sleeve 08/15/2021. sleeve gastrectomy 08-15-21 Past Anesthesia/Blood Transfusion Reactions: Motion Sickness, No Reported Reaction Past Psychological History: Anxiety Smoking Status: Never smoker Past Alcohol Use History: Rare Past Drug Use History: None Reported - Past Family History Mother Family Medical History: No Reported History Surgical - Exam Vital Signs Temp Pulse BP 98 F 83 120/78 10/17/21 13:01 10/17/21 13:01 10/17/21 13:01 - General well developed, well nourished, no distress - Eyes PERRL - ENT normal pinna - Neck no masses - Respiratory normal expansion - Cardiovascular Rhythm: regular - Abdomen Abdomen: soft, non tender Bariatric Assessment & Plan Plan: Status post sleeve gastrectomy. Patient is doing quite well. Her GERD is minimal and will be observed. Bariatric Checklist Checklist: Plan: Checklist: EGD: 1. Hiatal hernia: 2. H. Pylori: HgbA1c: Vitamin D: Smoking: Never smoker Primary care physician referral: Psychiatry clearance: Cardiology clearance: Sleep study: Diet journal: VTE risk score: VTE risk level: Rehab needs at discharge:
== END ==
LOC: BARWHC3 12:32
PROVIDERS: ATTEND Surgery
DX: Z09 Encounter for follow-up examination after completed treatment for conditions other than malignant neoplasm (principal); K21.9 Gastro-esophageal reflux disease without esophagitis; F41.9 Anxiety disorder, unspecified; Z98.84 Bariatric surgery status; Z91.040 Latex allergy status; Z88.2 Allergy status to sulfonamides
CPT/HCPCS: 99211

== ENCOUNTER → 2021-11-21 | Outpatient (CLI) | payer BC, OTHER ==
[2021-11-21 15:11] VITALS: BP 113/75; PULSE 73; TEMP 98.2; BMI 36.8
--- NOTE | 2021-11-29 16:35 | P.HPBAR ---
Bariatric H&P - History & Physicial H&P Date: 11/21/21 History & Physicial: Visit/CC: sleeve f/u Patient initial contact: Initial weight: 126.099 kg Initial weight in pounds: 278.00 Height: 5 ft 6 in Initial BMI: 44.9 Last weight: Current weight: 103.419 kg Current weight in pounds: 228.00 Current BMI: 36.8 [place] body weight (based on NIH guidelines): 58.967 kg Excess body weight loss: 33.7% The patient is a 41 year-old F who presents for Bariatric Assessment. Patient is today for sleeve gastric fall. She's had some mild GERD. She's had a slight weight gain. Past Medical History Past Medical History: GERD/Reflux, Mitral Valve Prolapse (MVP), Skin Disorder Additional Past Medical History / Comment(s): "MVP not shown on EKG, difficult to hear per ". Eczema. History of Any Multi-Drug Resistant Organisms: None Reported Past Surgical History: Bariatric Surgery, Cholecystectomy, Orthopedic Surgery, Tonsillectomy Additional Past Surgical History / Comment(s): ORIF RT LITTLE FINGER. sleeve 08/15/2021. sleeve gastrectomy 08-15-21 Past Anesthesia/Blood Transfusion Reactions: Motion Sickness, No Reported Re action Past Psychological History: Anxiety Smoking Status: Never smoker Past Alcohol Use History: Rare Past Drug Use History: None Reported - Past Family History Mother Family Medical History: No Reported History Surgical - Exam Vital Signs Temp Pulse BP 98.2 F 73 113/75 11/21/21 15:09 11/21/21 15:09 11/21/21 15:09 - General well developed, well nourished, no distress - Eyes PERRL - ENT normal pinna - Neck no masses - Respiratory normal expansion - Cardiovascular Rhythm: regular - Abdomen Abdomen: soft, non tender Bariatric Assessment & Plan Plan: Resolving morbid piece. Patient's GERD is minimal and will be observed. Follow-up in 4 weeks. Bariatric Checklist Checklist: Plan: Checklist: EGD: 1. Hiatal hernia: 2. H. Pylori: HgbA1c: Vitamin D: Smoking: Never smoker Primary care physician referral: Teresa Psychiatry clearance: Cardiology clearance: Sleep study: Diet journal: VTE risk score: VTE risk level: Rehab needs at discharge:
== END ==
LOC: BARWHC3 15:00
PROVIDERS: ATTEND Surgery
DX: E66.01 Morbid (severe) obesity due to excess calories (principal); Z71.3 Dietary counseling and surveillance; Z68.36 Body mass index [BMI] 36.0-36.9, adult; Z98.84 Bariatric surgery status; K21.9 Gastro-esophageal reflux disease without esophagitis; F41.9 Anxiety disorder, unspecified
CPT/HCPCS: 97803; 99211

== ENCOUNTER → 2022-01-02 | Outpatient (CLI) | payer BC ==
[2022-01-02 14:35] VITALS: BP 114/76; PULSE 68; TEMP 97.9; BMI 36.3
--- NOTE | 2022-01-16 15:07 | P.HPBAR ---
Bariatric H&P - History & Physicial H&P Date: 01/16/22 History & Physicial: Visit/CC: sleeve f/u Patient initial contact: Initial weight: 126.099 kg Initial weight in pounds: 278.00 Height: 5 ft 6 in Initial BMI: 44.9 Last weight: Current weight: 102.058 kg Current weight in pounds: 225.00 Current BMI: 36.3 [place] body weight (based on NIH guidelines): 58.967 kg Excess body weight loss: 35.8% The patient is a 41 year-old F who presents for Bariatric Assessment. Patient presents today for sleeve gastrectomy follow-up. Patient currently weighs 225 pounds. She previously weight 228 pounds. She has some mild GERD. Past Medical History Past Medical History: GERD/Reflux, Mitral Valve Prolapse (MVP), Skin Disorder Additional Past Medical History / Comment(s): "MVP not shown on EKG, difficult to hear per ". Eczema. History of Any Multi-Drug Resistant Organisms: None Reported Past Surgical History: Bariatric Surgery, Cholecystectomy, Orthopedic Surgery, Tonsillectomy Additional Past Surgical History / Comment(s): ORIF RT LITTLE FINGER. sleeve 08/15/2021. sleeve gastrectomy 08-15-21 Past Anesthesia/Blood Transfusion Reactions: Motion Sickness, No Reported Reaction Past Psychological History: Anxiety Smoking Status: Never smoker Past Alcohol Use History: Rare Past Drug Use History: None Reported - Past Family History Mother Family Medical History: No Reported History Surgical - Exam Vital Signs Temp Pulse BP 97.9 F 68 114/76 01/02/22 14:29 01/02/22 14:29 01/02/22 14:29 - General well developed, well nourished, no distress - Eyes PERRL - ENT normal pinna - Neck no masses - Respiratory normal expansion - Cardiovascular Rhythm: regular - Abdomen Abdomen: soft, non tender Bariatric Assessment & Plan Plan: Resolving morbid obesity. Patient's GERD is minimal and will be observed. She'll follow-up in 4 weeks. Bariatric Checklist Checklist: Plan: Checklist: EGD: 1. Hiatal hernia: 2. H. Pylori: HgbA1c: Vitamin D: Smoking: Never smoker Primary care physician referral: Teresa Psychiatry clearance: Cardiology clearance: Sleep study: Diet journal: VTE risk score: VTE risk level: Rehab needs at discharge:
== END ==
LOC: BARWHC3 14:03
PROVIDERS: ATTEND Surgery
DX: E66.01 Morbid (severe) obesity due to excess calories (principal); K21.9 Gastro-esophageal reflux disease without esophagitis; Z98.84 Bariatric surgery status; F41.9 Anxiety disorder, unspecified; Z91.040 Latex allergy status; Z88.2 Allergy status to sulfonamides
CPT/HCPCS: 99211

== ENCOUNTER → 2022-01-30 | Outpatient (CLI) | payer BC ==
[2022-01-30 13:11] VITALS: BP 109/68; PULSE 82; TEMP 98.2; BMI 35.6
--- NOTE | 2022-02-14 12:38 | P.HPBAR ---
Bariatric H&P - History & Physicial H&P Date: 01/30/22 History & Physicial: Visit/CC: sleeve f/u Patient initial contact: Initial weight: 126.099 kg Initial weight in pounds: 278.00 Height: 5 ft 6 in Initial BMI: 44.9 Last weight: Current weight: 100.244 kg Current weight in pounds: 221.00 Current BMI: 35.6 [place] body weight (based on NIH guidelines): 58.967 kg Excess body weight loss: 38.5% The patient is a 41 year-old F who presents for Bariatric Assessment. Patient resents today for sleeve gastrectomy follow-up. She's had some mild GERD. Past Medical History Past Medical History: GERD/Reflux, Mitral Valve Prolapse (MVP), Skin Disorder Additional Past Medical History / Comment(s): "MVP not shown on EKG, difficult to hear per ". Eczema. History of Any Multi-Drug Resistant Organisms: None Reported Past Surgical History: Bariatric Surgery, Cholecystectomy, Orthopedic Surgery, Tonsillectomy Additional Past Surgical History / Comment(s): ORIF RT LITTLE FINGER. sleeve 08/15/2021. sleeve gastrectomy 08-15-21 Past Anesthesia/Blood Transfusion Reactions: Motion Sickness, No Reported Reaction Past Psychological History: Anxiety Smoking Status: Never smoker Past Alcohol Use History: Rare Past Drug Use History: None Reported - Past Family History Mother Family Medical History: No Reported History Surgical - Exam Vital Signs Temp Pulse BP 98.2 F 82 109/68 01/30/22 13:08 01/30/22 13:08 01/30/22 13:08 - General well developed - Eyes PERRL - ENT normal pinna - Neck no masses - Respiratory normal expansion - Cardiovascular Rhythm: regular - Abdomen Abdomen: soft, non tender Bariatric Assessment & Plan Plan: Status post sleeve gastrectomy. Patient's GERD is minimal and will be observed. She'll follow-up in 4 weeks. Bariatric Checklist Checklist: Plan: Checklist: EGD: 1. Hiatal hernia: 2. H. Pylori: HgbA1c: Vitamin D: Smoking: Never smoker Primary care physician referral: Teresa Psychiatry clearance: Cardiology clearance: Sleep study: Diet journal: VTE risk score: VTE risk level: Rehab needs at discharge:
== END | disposition home or self-care (01) ==
LOC: BARWHC3 12:55
PROVIDERS: ATTEND Surgery
DX: Z48.815 Encounter for surgical aftercare following surgery on the digestive system (principal); K21.9 Gastro-esophageal reflux disease without esophagitis
CPT/HCPCS: 99211

== ENCOUNTER → 2022-02-27 | Outpatient (CLI) | payer BC ==
[2022-02-27 12:48] VITALS: BP 122/80; PULSE 85; RESP 16; TEMP 98; BMI 34.8
[2022-02-27 18:27] LABS: % Iron Saturation 21.18 (12.00-45.00); African American GFR (CKD) 101.3 (60.0-200.0); Albumin 4.4 g/dL (3.8-4.9); Albumin/Globulin Ratio 1.64 (1.60-3.17); BUN/Creat Ratio 19.86 Ratio (12.00-20.00); Blood Urea Nitrogen 16.6 mg/dL (9.0-27.0); Calcium 9.4 mg/dL (8.7-10.3); Ferritin 75.2 ng/mL (10.0-291.0); Globulin 2.7 g/dL (1.6-3.3); Magnesium 2.1 mg/dL (1.5-2.4); Non-African American GFR(CKD) 87.4 (60.0-200.0); Potassium 4.5 mmol/L (3.5-5.5); Total Bilirubin 0.6 mg/dL (0.30-1.20)
[2022-02-27 19:18] LABS: HCT 43.5 % (37.2-46.3); HGB 14.5 g/dL (12.0-15.0); MCH 28.9 pg (27.0-32.0); MCHC 33.3 g/dL (32.0-37.0); MCV 86.8 fL (80.0-97.0); Mean Platelet Volume 9.9 fL (9.5-12.2); NRBC Per 100 WBC 0 /100 WBCS (0.0-0.0); Platelet Count 348 X 10*3/uL (140-440); RBC 5.01 X 10*6/uL (4.10-5.20); RDW 13.2 % (11.5-14.5); WBC 7.79 X 10*3/uL (4.50-10.00)
[2022-02-28 15:16] LABS: Zinc, Serum 67 ug/dL (60-130)
[2022-02-28 18:25] LABS: Vitamin D, 1, 25-Dihydroxy 59 pg/mL (20 - 79)
[2022-03-01 06:14] LABS: Vitamin A 48 ug/dL (38-106)
== END ==
LOC: BARWHC3 12:34
PROVIDERS: ATTEND Surgery
DX: D50.8 Other iron deficiency anemias (principal); E66.01 Morbid (severe) obesity due to excess calories; E55.9 Vitamin D deficiency, unspecified; T56.894A Toxic effect of other metals, undetermined, initial encounter; K90.9 Intestinal malabsorption, unspecified; Z68.34 Body mass index [BMI] 34.0-34.9, adult
CPT/HCPCS: 80053; 82607; 82652; 82728; 82746; 83540; 83550; 83735; 84255; 84425; 84443; 84590; 84630; 85027; 97803; 99211

== ENCOUNTER → 2022-05-22 | Outpatient (CLI) | payer BC ==
[2022-05-22 13:37] VITALS: BP 121/70; PULSE 73; TEMP 98.2; BMI 34.5
[2022-05-22 17:52] LABS: HCT 43.5 % (37.2-46.3); HGB 13.8 g/dL (12.0-15.0); MCHC 31.7 g/dL (32.0-37.0); MCV 88.2 fL (80.0-97.0); Mean Platelet Volume 10.5 fL (9.5-12.2); NRBC Per 100 WBC 0 /100 WBCS (0.0-0.0); Platelet Count 278 X 10*3/uL (140-440); RBC 4.93 X 10*6/uL (4.10-5.20); WBC 6.39 X 10*3/uL (4.50-10.00)
[2022-05-22 18:28] LABS: % Iron Saturation 17.7 (12.00-45.00); African American GFR (CKD) 106.9 (60.0-200.0); Albumin 4.3 g/dL (3.8-4.9); Albumin/Globulin Ratio 1.87 (1.60-3.17); Anion Gap 9.6 mmol/L (10.00-18.00); BUN/Creat Ratio 16.38 Ratio (12.00-20.00); Blood Urea Nitrogen 13.1 mg/dL (9.0-27.0); Calcium 9.2 mg/dL (8.7-10.3); Carbon Dioxide 27.4 mmol/L (20.0-27.5); Ferritin 70.2 ng/mL (10.0-291.0); Globulin 2.3 g/dL (1.6-3.3); Magnesium 2.1 mg/dL (1.5-2.4); Non-African American GFR(CKD) 92.2 (60.0-200.0); Potassium 4.6 mmol/L (3.5-5.5); Total Bilirubin 0.4 mg/dL (0.30-1.20); Total Protein 6.6 g/dL (6.2-8.2)
[2022-05-23 13:32] LABS: Zinc, Serum 52 ug/dL (60-130)
[2022-05-24 05:47] LABS: Vit B1(Thiamine) 64 ug/L (38-122)
[2022-05-24 14:14] LABS: Vitamin A 49 ug/dL (38-106)
[2022-05-26 13:20] LABS: Selenium 183 mcg/L (63-160)
--- NOTE | 2022-06-05 15:48 | P.HPBAR ---
Bariatric H&P - History & Physicial H&P Date: 05/22/22 History & Physicial: Visit/CC: nine month follow up Patient initial contact: Initial weight: 126.099 kg Initial weight in pounds: 278.00 Height: 5 ft 6 in Initial BMI: 44.9 Last weight: Current weight: 97.069 kg Current weight in pounds: 214.00 Current BMI: 34.5 [place] body weight (based on NIH guidelines): 58.967 kg Excess body weight loss: 43.2% The patient is a 41 year-old F who presents for Bariatric Assessment. Patient presents today for bariatric follow-up. She's had some minimal GERD. She states her arthritis is improved. Past Medical History Past Medical History: GERD/Reflux, Mitral Valve Prolapse (MVP), Skin Disorder Additional Past Medical History / Comment(s): "MVP not shown on EKG, difficult to hear per ". Eczema. History of Any Multi-Drug Resistant Organisms: None Reported Past Surgical History: Bariatric Surgery, Cholecystectomy, Orthopedic Surgery, Tonsillectomy Additional Past Surgical History / Comment(s): ORIF RT LITTLE FINGER. sleeve 08/15/2021. sleeve gastrectomy 08-15-21 Past Anesthesia/Blood Transfusion Reactions: Motion Sickness, No Reported Reaction Past Psychological History: Anxiety Smoking Status: Never smoker Past Alcohol Use History: Rare Past Drug Use History: None Reported - Past Family History Mother Family Medical History: No Reported History Surgical - Exam Vital Signs Temp Pulse BP 98.2 F 73 121/70 05/22/22 13:36 05/22/22 13:36 05/22/22 13:36 - General well developed, well nourished, no distress - Eyes PERRL - Neck no masses - Cardiovascular Rhythm: regular - Abdomen Abdomen: soft, non tender Results - Labs 05/22/22 13:55 05/22/22 13:55 Bariatric Assessment & Plan Plan: Resolving morbid obesity. Patient's GERD is minimal will be observed. She'll follow-up in 4 weeks. Bariatric Checklist Checklist: Plan: Checklist: EGD: 1. Hiatal hernia: 2. H. Pylori: HgbA1c: Vitamin D: Smoking: Never smoker Primary care physician referral: Teresa Psychiatry clearance: Cardiology clearance: Sleep study: Diet journal: VTE risk score: VTE risk level: Rehab needs at discharge:
== END | disposition home or self-care (01) ==
LOC: BARWHC3 13:11
PROVIDERS: ATTEND Surgery
DX: E66.01 Morbid (severe) obesity due to excess calories (principal); K44.9 Diaphragmatic hernia without obstruction or gangrene; B96.81 Helicobacter pylori [H. pylori] as the cause of diseases classified elsewhere; Z98.84 Bariatric surgery status; Z90.49 Acquired absence of other specified parts of digestive tract; K21.9 Gastro-esophageal reflux disease without esophagitis; I34.1 Nonrheumatic mitral (valve) prolapse; Z68.34 Body mass index [BMI] 34.0-34.9, adult; Z91.040 Latex allergy status; Z88.2 Allergy status to sulfonamides
CPT/HCPCS: 80053; 82306; 82607; 82728; 82746; 83540; 83550; 83735; 84255; 84425; 84443; 84590; 84630; 85027; 99211

== ENCOUNTER → 2022-08-07 | Outpatient (CLI) | payer BC ==
[2022-08-07 14:14] VITALS: BP 117/83; PULSE 82; RESP 16; TEMP 98; BMI 33.9
--- NOTE | 2022-10-10 08:59 | P.HPBAR ---
Bariatric H&P - History & Physicial H&P Date: 08/07/22 History & Physicial: Visit/CC: 1 Year F/U Patient initial contact: Initial weight: 126.099 kg Initial weight in pounds: 278.00 Height: 5 ft 6 in Initial BMI: 44.9 Last weight: Current weight: 95.254 kg Current weight in pounds: 210.00 Current BMI: 33.9 [place] body weight (based on NIH guidelines): 58.967 kg Excess body weight loss: 45.9% The patient is a 42 year-old F who presents for Bariatric Assessment. Patient presents today for LAP-BAND follow-up. She's had some minimal GERD. She is approximately 2-year-old. Her current weight is 210 pounds. She lost 9 pounds her last visit. She's had some minimal GERD. Past Medical History Past Medical History: GERD/Reflux, Mitral Valve Prolapse (MVP), Skin Disorder Additional Past Medical History / Comment(s): "MVP not shown on EKG, difficult to hear per ". Eczema. History of Any Multi-Drug Resistant Organisms: None Reported Past Surgical History: Bariatric Surgery, Cholecystectomy, Orthopedic Surgery, Tonsillectomy Additional Past Surgical History / Comment(s): ORIF RT LITTLE FINGER. sleeve 08/15/2021. sleeve gastrectomy 08-15-21 Past Anesthesia/Blood Transfusion Reactions: Motion Sickness, No Reported Reaction Past Psychological History: Anxiety Smoking Status: Never smoker Past Alcohol Use History: Rare Past Drug Use History: None Reported - Past Family History Mother Family Medical History: No Reported History Surgical - Exam Vital Signs Temp Pulse Resp BP 98 F 82 16 117/83 08/07/22 14:03 08/07/22 14:03 08/07/22 14:03 08/07/22 14:03 - General well developed, well nourished, no distress - Eyes PERRL, normal ocular movement - ENT normal pinna - Neck no masses - Respiratory normal expansion - Cardiovascular Rhythm: regular - Abdomen Abdomen: soft, non tender Bariatric Assessment & Plan Plan: Status post sleeve gastrectomy. Patient is doing quite well. Her GERD is minimal will be observed. She'll follow-up in 3 months. Bariatric Checklist Checklist: Plan: Checklist: EGD: 1. Hiatal hernia: 2. H. Pylori: HgbA1c: Vitamin D: Smoking: Never smoker Primary care physician referral: Teresa Psychiatry clearance: Cardiology clearance: Sleep study: Diet journal: VTE risk score: VTE risk level: Rehab needs at discharge:
== END ==
LOC: BARWHC3 14:02
PROVIDERS: ATTEND Surgery
DX: E66.01 Morbid (severe) obesity due to excess calories (principal); K21.9 Gastro-esophageal reflux disease without esophagitis; Z98.84 Bariatric surgery status; Z68.33 Body mass index [BMI] 33.0-33.9, adult; Z91.040 Latex allergy status; Z88.2 Allergy status to sulfonamides
CPT/HCPCS: 99211